=== PATIENT | female | born 1985 | race Caucasian/White ===

== ENCOUNTER 2022-07-22 07:24 | Emergency (ER) | payer MEDICAID ==
[~2022-07-22] VITALS: Ht 165.1 cm; Wt 69.5 kg
[2022-07-22 07:26] VITALS: BP 107/67
--- NOTE | 2022-07-22 07:35 | NUR ---
PT AMB TO BED 2.
[2022-07-22] MEDS ORDERED: ONDANSETRON 4 MG ODT PO ONE (07:50)
[2022-07-22] MEDS ORDERED: ALUMINUM HYD/MAG/SIMETHICONE 30 ML UDC PO ONE (07:50)
[2022-07-22] MEDS ORDERED: FAMOTIDINE 20 MG TAB PO ONE (07:50)
[2022-07-22] MEDS ORDERED: FAMO-92 PO (08:33)
[2022-07-22] MEDS ORDERED: ONDA-188 PO (08:33)
[2022-07-22] MEDS ORDERED: ACETAMINOPHEN 325 MG TAB PO ONE (08:40)
--- NOTE | 2022-07-22 08:50 | NUR ---
Patient discharged with v/s stable. Written and verbal after care instructions ABOUT GASTRITIS AND HEART MURMUR given and explained. Patient alert, oriented and verbalized understanding of instructions. Ambulatory with steady gait. All questions addressed prior to discharge. ID band removed. Patient advised to follow up with PMD. Rx of ZOFRAN ODT, PEPCID given. Patient educated on indication of medication including possible reaction and side effects. Opportunity to ask questions provided and answered.
[2022-07-22] MEDS ORDERED: ACET-8905 PO (13:47)
== END 2022-07-22 08:50 | disposition home or self-care (01) ==
LOC: MED 07:24
DX: K29.70 Gastritis, unspecified, without bleeding (principal); K21.9 Gastro-esophageal reflux disease without esophagitis; R01.1 Cardiac murmur, unspecified; Z98.890 Other specified postprocedural states; Z79.899 Other long term (current) drug therapy
CPT/HCPCS: 81025; 99284; Q0162

== ENCOUNTER 2022-07-22 11:14 | Emergency (ER) | payer MEDICAID ==
[~2022-07-22] VITALS: Ht 165.1 cm; Wt 69.9 kg
[~2022-07-22 11:14] MED LIST: FAMO-92 PO; ONDA-188 PO
[2022-07-22 11:16] VITALS: BP 112/59
--- NOTE | 2022-07-22 11:21 | NUR ---
PT AMB TO BED 11.
--- NOTE | 2022-07-22 11:44 | NUR ---
ASSUMED PATIENT CARE, NURSING ASSESSMENT COMPLETED.
--- NOTE | 2022-07-22 12:04 | NUR ---
SEEN AND EVALUATED BY DR SERRANO, MSE COMPLETED.
[2022-07-22] MEDS ORDERED: KETOROLAC 60 MG/2 ML VIAL IM ONE (12:05)
[2022-07-22] MEDS ORDERED: ONDANSETRON 4 MG ODT PO ONE (12:05)
[2022-07-22] MEDS ORDERED: KETOROLAC 30 MG/ML VIAL ONE (12:06)
[2022-07-22 13:15] LABS: BASOPHILS # (AUTO) 0.1 K/uL (0.00-0.22); BASOPHILS % (AUTO) 0.6 % (0.0-2.0); EOSINOPHILS % (AUTO) 0.1 % (0.0-4.0); HEMATOCRIT 36.7 % (36-48); HEMOGLOBIN 12.1 g/dL (12.0-16.0); LYMPHOCYTES # (AUTO) 1.4 K/uL (2.5-16.5); LYMPHOCYTES % (AUTO) 9.3 % (20.5-51.1); MEAN CORPUSCULAR HEMOGLOBIN 29 pg (27-31); MEAN CORPUSCULAR HGB CONC 33 g/dL (33-37); MEAN CORPUSCULAR VOLUME 88.6 fL (80-94); MONOCYTES # (AUTO) 0.4 K/uL (0.8-1.0); MONOCYTES % (AUTO) 2.8 % (1.7-9.3); NEUTROPHILS # (AUTO) 12.9 K/uL (1.8-7.7); NEUTROPHILS % (AUTO) 87.2 % (42.2-75.2); PLATELET COUNT (AUTO) 250 K/uL (140-450); RED BLOOD CELL COUNT(AUTO) 4.14 MIL/uL (4.20-5.40); RED CELL DISTRIBUTION WIDTH 14.6 % (11.6-13.7); WHITE BLOOD COUNT (AUTO) 14.8 K/uL (4.8-10.8)
[2022-07-22 13:36] LABS: ALBUMIN 3.7 g/dL (3.4-5.0); ANION GAP 11.8 (8-16); CREATININE 0.6 mg/dL (0.6-1.3); POTASSIUM 3.8 mmol/L (3.5-5.1); TOTAL BILIRUBIN 0.3 mg/dL (0.0-1.0)
[2022-07-22] MEDS ORDERED: ACET-8905 PO (13:47)
[2022-07-22 14:01] VITALS: BP 120/72
== END 2022-07-22 14:02 | disposition home or self-care (01) ==
LOC: MED 11:14
DX: K80.50 Calculus of bile duct without cholangitis or cholecystitis without obstruction (principal); Z98.890 Other specified postprocedural states; Z79.899 Other long term (current) drug therapy; Z79.891 Long term (current) use of opiate analgesic
CPT/HCPCS: 36415; 76705; 80053; 83690; 85025; 96372; 99285; J1885; Q0092; Q0162

== ENCOUNTER 2023-04-18 05:23 | Emergency (ER) | payer MEDICAID ==
[~2023-04-18] VITALS: Ht 165.1 cm; Wt 68.0 kg
[~2023-04-18 05:23] MED LIST changes: +ACET-8905 PO
[2023-04-18 05:51] VITALS: BP 91/61; PULSE 70; RESP 16; TEMP 97.8; O2SAT 98
[2023-04-18 07:22] LABS: APPEARANCE,URINE CLEAR (CLEAR); BILIRUBIN,URINE NEGATIVE (NEGATIVE); BLOOD, URINE 2+ (NEGATIVE); COLOR,URINE YELLOW (YELLOW); LEUKOCYTE ESTERASE ,URINE NEGATIVE (NEGATIVE); NITRITE, URINE NEGATIVE (NEGATIVE); PROTEIN,URINE TRACE (NEGATIVE); UGLUCOSE NEGATIVE (NEGATIVE); UROBILINOGEN,URINE 0.2 EU/dL (0.2 - 1)
[2023-04-18] MEDS ORDERED: BEN10 PO (08:21)
[2023-04-18] MEDS ORDERED: LOPE1TAB14 PO (08:21)
[2023-04-18] MEDS ORDERED: IBUP-2213 PO (08:21)
[2023-04-18 12:11] LABS: BACTERIA,URINE >30 (MANY) /HPF (None Seen); MUCUS,URINE None Seen /LPF (None Seen); RBC,URINE >20 (MANY) /HPF (0-5); SQUAMOUS EPITHELIAL CELL,UR None Seen /LPF (0-3 (FEW)); TRICHOMONAS,URINE None Seen /HPF (None Seen); WHITE BLOOD CELL CASTS,URINE None Seen /LPF (None Seen); YEAST,URINE None Seen /HPF (None Seen)
== END 2023-04-18 08:42 | disposition home or self-care (01) ==
LOC: MED 05:23
DX: R10.9 Unspecified abdominal pain (principal); R19.7 Diarrhea, unspecified; Z79.899 Other long term (current) drug therapy
CPT/HCPCS: 81001; 81025; 87086; 99283